=== PATIENT | male | born 1970 | race American Indian/Alaskan Native ===

== ENCOUNTER 2022-04-04 23:23 | Emergency (ER) | payer MEDICAID ==
[2022-04-05] MEDS ORDERED: ACETAMINOPHEN 500 MG TAB PO ONE (05:32)
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
[2022-04-05 08:48] VITALS: BP 132/86
== END 2022-04-05 09:23 | disposition home or self-care (01) ==
LOC: ED 23:23
DX: R07.81 Pleurodynia (principal); R51.9 Headache, unspecified; E11.9 Type 2 diabetes mellitus without complications; Z91.09 Other allergy status, other than to drugs and biological substances; Y08.89XA Assault by other specified means, initial encounter; Y93.89 Activity, other specified; Y92.89 Other specified places as the place of occurrence of the external cause; Y99.8 Other external cause status
CPT/HCPCS: 99283